=== PATIENT | female | born 2000 | race American Indian/Alaskan Native ===

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

== ENCOUNTER 2021-01-19 17:48 | Emergency (ER) | payer MEDICAID ==
[2021-01-19 19:23] VITALS: BP 132/58
[2021-01-19] MEDS ORDERED: ONDANSETRON 4 MG ODT TAB PO ONE (19:23)
--- NOTE | 2021-01-19 19:24 | Emergency Department Report ---
ED General Adult HPI - General Chief complaint: Nausea/Vomiting/Diarrhea Stated complaint: NAUSEA,VOMITING Time Seen by Provider: 01/19/21 18:58 Source: patient Mode of arrival: Ambulatory Limitations: No Limitations - History of Present Illness Initial comments: 20 year old female who denies any significant past medical hx presents to ED with complaints of "not feeling well", nausea and vomiting. Patient states that symptoms started a couple days ago. Patient reports mild rhinorrhea, decreased appetite, nausea and she states she did vomit once today. She denies any diarrhea constipation. She denies any pain. She denies any change to her taste or smell. She denies any apparent ill contacts or recent travel. She states that her last menstrual cycle was sometime in November. She has taken a home and it was negative. She states that she did have Covid 3 months ago. She has not taken a test again since she has not been feeling well. She has not gotten any of the COVID-19 vaccines. MD Complaint: "feeling bad"/n/v -: Gradual, days(s) (2) - Related Data Previous Rx's Medication Instructions Recorded Last Taken Type Ondansetron [Zofran Odt] 4 mg PO Q8HR #15 tab.rapdis 01/19/21 Unknown Rx Allergies Allergy/AdvReac Type Severity Reaction Status Date / Time No Known Allergies Allergy Verified 01/19/21 17:55 ED Review of Systems ROS: Stated complaint: NAUSEA,VOMITING Other details as noted in HPI Comment: All other systems reviewed and negative Constitutional: denies: chills, fever Eyes: denies: eye pain, eye discharge, vision change ENT: other (rhinorrhea ). denies: ear pain, throat pain, dental pain, hearing loss, epistaxis, congestion Respiratory: denies: cough, orthopnea, shortness of breath, SOB with exertion, SOB at rest, wheezing Cardiovascular: denies: chest pain, palpitations, dyspnea on exertion, edema, syncope, paroxysmal nocturnal dyspnea Gastrointestinal: nausea, vomiting. denies: abdominal pain, diarrhea, constipation, hematemesis, melena, hematochezia Genitourinary: denies: urgency, dysuria, frequency, hematuria, discharge, abnormal menses, dyspareunia Musculoskeletal: denies: back pain, joint swelling, arthralgia Skin: denies: rash, lesions, change in color, change in hair/nails, pruritus ED Past Medical Hx - Social History Smoking Status: Former Smoker Substance Use Type: None - Medications Home Medications: Home Medications Medication Instructions Recorded Confirmed Last Taken Type Ondansetron [Zofran Odt] 4 mg PO Q8HR #15 tab.andreidis 01/19/21 Unknown Rx ED Physical Exam - General Limitations: No Limitations General appearance: alert, in no apparent distress - Head Head exam: Present: atraumatic, normocephalic, normal inspection - Eye Eye exam: Present: normal appearance, PERRL, EOMI Pupils: Present: normal accommodation - ENT ENT exam: Present: normal exam, mucous membranes moist, TM's normal bilaterally - Neck Neck exam: Present: normal inspection, full ROM - Respiratory Respiratory exam: Present: normal lung sounds bilaterally. Absent: respiratory distress, wheezes, rales, rhonchi, stridor - Cardiovascular Cardiovascular Exam: Present: regular rate, normal rhythm, normal heart sounds - GI/Abdominal GI/Abdominal exam: Present: soft. Absent: distended, tenderness, guarding - Back Exam Back exam: Present: normal inspection - Neurological Exam Neurological exam: Present: alert, oriented X3, CN II-XII intact, normal gait - Psychiatric Psychiatric exam: Present: normal affect, normal mood - Skin Skin exam: Present: intact ED Course Vital Signs 01/19/21 17:56 Temperature 99.0 F Pulse Rate 78 Respiratory 18 Rate Blood Pressure 132/58 O2 Sat by Pulse 99 Oximetry ED Medical Decision Making - Medical Decision Making Urinalysis shows nothing acute. hCG is negative. Patient currently resting comfortably, on her phone and talking to her friend in the room. She is not toxic or ill-appearing. She is not in any significant distress. She has a soft nontender abdomen. Chest clear to auscultation. She is neurologically intact with a normal gait. Her vital signs are stable. Patient symptoms could be related to a viral illness at this time. There is no indication for any additional testing, admission or specialist consult at this time. Discussed results, suspected diagnosis and treatment plan with patient. Patient expressed understanding for instructions and agree with plan. Patient stable at time of discharge. Critical care attestation.: If time is entered above; I have spent that time in minutes in the direct care of this critically ill patient, excluding procedure time. ED Disposition Clinical Impression: Nausea and vomiting, Viral illness Disposition: HOME / SELF CARE / HOMELESS Is pt being admited?: No Does the pt Need Aspirin: No Condition: Stable Instructions: Nausea and Vomiting, Adult, [id number], Viral Illness, Adult Additional Instructions: You can take the Zofran as prescribed to help with nausea. Drink lots of fluids. Recommend taking a COVID-19 test as COVID-19 is in the differential possibilities to the cause of his symptoms. Recommend that you quarantine until you know the results of your Covid test. Follow-up closely with your PCP, if you do not have 1 1 will be provided to you on your discharge instructions. Return to the ER if your symptoms worsens or changes in any way. Prescriptions: Ondansetron [Zofran Odt] 4 mg PO Q8HR #15 tab.rapdis Referrals: [facility] [Provider Group] - 3-5 Days Forms: Work/School Release Form(ED) Time of Disposition: 20:35
[2021-01-19 20:08] LABS: Bilirubin,Urine NEG (Negative); Blood,Urine NEG (Negative); Color,Urine Amber (Yellow); Mucus,Urine 3+ /HPF
[2021-01-19 20:22] LABS: HCG Qualitative,Urine Negative (Negative)
== END 2021-01-19 21:28 | disposition home or self-care (01) ==
LOC: ED 17:48
DX: B34.9 Viral infection, unspecified (principal); R11.2 Nausea with vomiting, unspecified
CPT/HCPCS: 81001; 81025; 99283; Q0162

== ENCOUNTER 2021-01-26 13:03 | Emergency (ER) | payer MEDICAID ==
[2021-01-26 13:18] VITALS: BP 129/84
[2021-01-26] MEDS ORDERED: IBUPROFEN 600 MG TAB PO ONE (13:37)
--- NOTE | 2021-01-26 14:32 | Emergency Department Report ---
ED Back Pain/Injury HPI - General Chief Complaint: Back Pain/Injury Stated Complaint: FLANK PAIN Time Seen by Provider: 01/26/21 13:30 Source: patient Limitations: No Limitations - History of Present Illness Initial Comments: Patient presents with nontraumatic back pain. This is pain in the right flank area. It does not radiate or migrate. There is no history of travel or trauma. She had been seen recently for an upper respiratory infection. That was here. She had been seen at urgent care for similar symptoms. She states that she did not have this pain at that time. She has no dysuria or frequency or hematuria. No vaginal bleeding or discharge. She still states that she has a cough but the cough is better. The pain that she is having is in the right flank area. It does not radiate or migrate. It is not pleuritic in nature. It is slightly worse with movement and palpation. - Related Data Previous Rx's Medication Instructions Recorded Last Taken Type Ondansetron [Zofran Odt] 4 mg PO Q8HR #15 tab.rapdis 01/19/21 Unknown Rx Ibuprofen [Motrin] 600 mg PO Q8H PRN #20 tablet 01/26/21 Unknown Rx Allergies Allergy/AdvReac Type Severity Reaction Status Date / Time No Known Allergies Allergy Verified 01/26/21 13:18 ED Review of Systems ROS: Stated complaint: FLANK PAIN Other details as noted in HPI Comment: All other systems reviewed and negative Constitutional: denies: fever Eyes: denies: eye pain ENT: denies: throat pain Respiratory: see HPI Cardiovascular: denies: chest pain Gastrointestinal: denies: abdominal pain Genitourinary: denies: dysuria Musculoskeletal: as per HPI Skin: denies: rash Neurological: denies: headache Hematological/Lymphatic: denies: easy bruising ED Past Medical Hx - Past Medical History Previous Medical History?: No - Surgical History Past Surgical History?: No - Family History Family history: no significant - Social History Smoking Status: Former Smoker Substance Use Type: None - Medications Home Medications: Home Medications Medication Instructions Recorded Confirmed Last Taken Type Ondansetron [Zofran Odt] 4 mg PO Q8HR #15 tab.rapdis 01/19/21 Unknown Rx Ibuprofen [Motrin] 600 mg PO Q8H PRN #20 tablet 01/26/21 Unknown Rx ED Physical Exam - General Limitations: No Limitations, Other (Pulse ox noted and normal) General appearance: alert, in no apparent distress, obese (Mild) - Head Head exam: Present: atraumatic, normocephalic, normal inspection - Eye Eye exam: Present: normal appearance, EOMI. Absent: scleral icterus - ENT ENT exam: Present: normal exam, normal orophraynx, normal external ear exam - Neck Neck exam: Present: normal inspection. Absent: meningismus - Respiratory Respiratory exam: Present: normal lung sounds bilaterally. Absent: respiratory distress - Cardiovascular Cardiovascular Exam: Present: regular rate, normal rhythm - GI/Abdominal GI/Abdominal exam: Present: soft. Absent: tenderness - Extremities Exam Extremities exam: Present: normal capillary refill. Absent: calf tenderness - Back Exam Back exam: Present: CVA tenderness (R) (Mild). Absent: CVA tenderness (L) - Neurological Exam Neurological exam: Present: alert, oriented X3, CN II-XII intact, normal gait. Absent: motor sensory deficit - Psychiatric Psychiatric exam: Present: normal affect, normal mood - Skin Skin exam: Present: warm, dry ED Course Vital Signs 01/26/21 13:13 Temperature 98.3 F Pulse Rate 84 Respiratory 14 Rate Blood Pressure 129/84 [Left] O2 Sat by Pulse 100 Oximetry - Reevaluation(s) Reevaluation #1: 01/26/21 14:31 UA had been ordered Reevaluation #2: 01/26/21 15:05 UA was noted ED Medical Decision Making - Medical Decision Making Patient presents with right flank pain of ankle etiology. There is no trauma associated with this. I am not concerned for injury or rib fracture. She has no abdominal tenderness that would suggest referred pain from hepatitis or pancreatitis. She certainly does not have symptoms suggestive of biliary colic. She does not have dysuria frequency suggestive of pyelonephritis. UA is clean. There is no evidence of Timothy. She also has no hematuria to suggest ureteral colic. Critical care attestation.: If time is entered above; I have spent that time in minutes in the direct care of this critically ill patient, excluding procedure time. ED Disposition Clinical Impression: Acute right flank pain Disposition: HOME / SELF CARE / HOMELESS Is pt being admited?: No Condition: Stable Instructions: Flank Pain, Adult Additional Instructions: Drink plenty water. Return for problems. Continue taking your medication. Follow-up with your regular doctor for recheck and further management. Prescriptions: Ibuprofen [Motrin] 600 mg PO Q8H PRN #20 tablet PRN Reason: Pain Referrals: PRIMARY CARE, [Referring] - 3-5 Days JULIANNE GARCIA MD [Staff Physician] - 3-5 Days
[2021-01-26 14:58] LABS: Amorphous Crystals,Urine 1+; Bilirubin,Urine NEG (Negative); Blood,Urine NEG (Negative); Color,Urine Yellow (Yellow); Mucus,Urine FEW /HPF
== END 2021-01-26 16:56 ==
LOC: ED 13:03
DX: R10.9 Unspecified abdominal pain (principal); Z87.891 Personal history of nicotine dependence; Z79.899 Other long term (current) drug therapy
CPT/HCPCS: 81001; 99283

== ENCOUNTER 2021-02-03 19:42 | Emergency (ER) | payer MEDICAID ==
--- NOTE | 2021-02-03 20:25 | Emergency Department Report ---
ED Abdominal Pain HPI - General Chief Complaint: Abdominal Pain Stated Complaint: BODY NOSE STOPPED UP CRAMPING Time Seen by Provider: 02/03/21 20:21 Source: patient Mode of arrival: Ambulatory Limitations: No Limitations - History of Present Illness Initial Comments: Patient 20-year-old female who presents with abdominal pain cramping x2 weeks weeks. Seen 1 week ago diagnosed with UTI. Patient denies fevers or chills , abdominal pain cramping 5/10 and nuasea are primary concerns. Last menstrual cycle was 3 weeks ago. Patient is tolerating p.o. intake however. MD Complaint: abdominal pain - Related Data Previous Rx's Medication Instructions Recorded Last Taken Type Ondansetron [Zofran Odt] 4 mg PO Q8HR #15 tab.rapdis 01/19/21 Unknown Rx Ibuprofen [Motrin] 600 mg PO Q8H PRN #20 tablet 01/26/21 Unknown Rx Ibuprofen [Motrin 800 MG tab] 800 mg PO Q8HR PRN #30 tablet 02/03/21 Unknown Rx cephALEXin [Keflex] 500 mg PO Q8HR 7 Days #21 cap 02/03/21 Unknown Rx Allergies Allergy/AdvReac Type Severity Reaction Status Date / Time No Known Allergies Allergy Verified 01/26/21 13:18 ED Review of Systems ROS: Stated complaint: BODY NOSE STOPPED UP CRAMPING Other details as noted in HPI Constitutional: denies: chills, fever Eyes: denies: eye pain, eye discharge, vision change ENT: denies: ear pain, throat pain Respiratory: denies: cough, shortness of breath, wheezing Cardiovascular: denies: chest pain, palpitations Endocrine: no symptoms reported Gastrointestinal: abdominal pain, nausea. denies: vomiting, diarrhea, constipation, melena Genitourinary: frequency. denies: urgency, dysuria, hematuria, discharge, abnormal menses Musculoskeletal: back pain. denies: joint swelling, arthralgia Skin: denies: rash, lesions Neurological: denies: headache, weakness, paresthesias Psychiatric: denies: anxiety, depression Hematological/Lymphatic: denies: easy bleeding, easy bruising ED Past Medical Hx - Past Medical History Previous Medical History?: No - Surgical History Past Surgical History?: No - Social History Smoking Status: Former Smoker Substance Use Type: None - Medications Home Medications: Home Medications Medication Instructions Recorded Confirmed Last Taken Type Ondansetron [Zofran Odt] 4 mg PO Q8HR #15 tab.rapdis 01/19/21 Unknown Rx Ibuprofen [Motrin] 600 mg PO Q8H PRN #20 tablet 01/26/21 Unknown Rx Ibuprofen [Motrin 800 MG tab] 800 mg PO Q8HR PRN #30 tablet 02/03/21 Unknown Rx cephALEXin [Keflex] 500 mg PO Q8HR 7 Days #21 cap 02/03/21 Unknown Rx ED Physical Exam - General Limitations: No Limitations General appearance: alert, in no apparent distress - Head Head exam: Present: atraumatic, normocephalic - Eye Eye exam: Present: normal appearance, EOMI Pupils: Present: normal accommodation - ENT ENT exam: Present: mucous membranes moist - Neck Neck exam: Present: normal inspection, full ROM. Absent: tenderness - Respiratory Respiratory exam: Present: normal lung sounds bilaterally. Absent: respiratory distress, wheezes, stridor, chest wall tenderness - Cardiovascular Cardiovascular Exam: Present: regular rate, normal rhythm, normal heart sounds. Absent: systolic murmur, diastolic murmur, rubs, gallop - GI/Abdominal GI/Abdominal exam: Present: soft, normal bowel sounds. Absent: distended, tenderness, guarding, bruit, hernia - Rectal Rectal exam: Present: deferred - Extremities Exam Extremities exam: Present: normal inspection, full ROM. Absent: tenderness - Back Exam Back exam: Present: normal inspection, full ROM. Absent: CVA tenderness (R), CVA tenderness (L) - Neurological Exam Neurological exam: Present: alert, oriented X3, CN II-XII intact, normal gait - Psychiatric Psychiatric exam: Present: normal affect, normal mood - Skin Skin exam: Present: warm, dry, intact, normal color. Absent: rash ED Course Vital Signs 02/03/21 20:08 Temperature 98.2 F Pulse Rate 72 Respiratory 17 Rate Blood Pressure 126/70 O2 Sat by Pulse 99 Oximetry ED Medical Decision Making - Lab Data Result diagrams: 02/03/21 20:34 02/03/21 20:34 Labs 02/03/21 02/03/21 02/03/21 20:34 20:34 Unknown WBC 7.1 RBC 4.67 Hgb 12.5 Hct 38.7 MCV 83 MCH 27 L MCHC 32 RDW 16.2 H Plt Count 268 Seg Neutrophils % Clip Coater Sodium 135 L Potassium 3.9 Chloride 102.6 Carbon Dioxide 21 L Anion Gap 15 BUN 12 Creatinine 0.6 Estimated GFR > 60 BUN/Creatinine Ratio 20 Glucose 95 Calcium 9.1 Total Bilirubin 0.30 AST 17 ALT 18 Alkaline Phosphatase 91 Total Protein 8.1 Albumin 4.3 Albumin/Globulin Ratio 1.1 Urine Color Yellow Urine Turbidity Slightly-cloudy Urine pH 6.0 Ur Specific [place] 1.017 Urine Protein 30 mg/dl Urine Glucose (UA) Neg Urine Ketones Neg Urine Blood Lg Urine Nitrite Neg Urine Bilirubin Neg Urine Urobilinogen 2.0 Ur Leukocyte Esterase Neg Urine WBC (Auto) 31.0 H Urine RBC (Auto) > 182.0 U Epithel Cells (Auto) 1.0 Urine Yeast (Budding) Few Urine HCG, Qual Negative - Medical Decision Making UA noted for WBCs bacteria some yeast. Plan treat for UTI, follow-up with your doctor in 2 to 3 days. Return to emergency department should symptoms worsen. Patient currently alert oriented x3 tolerating p.o. intake without symptoms. Verbalized agreement and understanding with discharge plan. Patient DC'd home in stable condition at this time. Critical care attestation.: If time is entered above; I have spent that time in minutes in the direct care of this critically ill patient, excluding procedure time. ED Disposition Clinical Impression: UTI (urinary tract infection) Qualifiers: Urinary tract infection type: acute cystitis Hematuria presence: without hematuria Qualified Code(s): N30.00 - Acute cystitis without hematuria Disposition: HOME / SELF CARE / HOMELESS Is pt being admited?: No Does the pt Need Aspirin: No Condition: Stable Instructions: Abdominal Pain (ED), Urinary Tract Infection, Adult, [id number] Additional Instructions: Take medications as prescribed, follow-up with your doctor in 2 to 3 days. Return to emergency department should symptoms worsen. Prescriptions: cephALEXin [Keflex] 500 mg PO Q8HR 7 Days #21 cap Ibuprofen [Motrin 800 MG tab] 800 mg PO Q8HR PRN #30 tablet PRN Reason: pain Referrals: MAUREEN WAGNER MD [Staff Physician] - 3-5 Days Forms: Work/School Release Form(ED) Time of Disposition: 22:10
[2021-02-03 20:48] LABS: Hematocrit 38.7 % (30.3-42.9); Hemoglobin 12.5 gm/dl (10.1-14.3); Mean Corpuscular HGB Conc 32 % (30-34); Mean Corpuscular Volume 83 fl (79-97); Platelet Count 268 K/mm3 (140-440); Red Blood Count 4.67 M/mm3 (3.65-5.03); Red Cell Distribution Width 16.2 % (13.2-15.2)
[2021-02-03 20:56] LABS: Bilirubin,Urine NEG (Negative); Blood,Urine LG (Negative); Color,Urine Yellow (Yellow)
[2021-02-03 20:58] LABS: HCG Qualitative,Urine Negative (Negative); RBC,Urine > 182.0 /HPF (0.0-6.0)
[2021-02-03 21:10] LABS: Alanine Aminotransferase 18 units/L (7-56); Albumin 4.3 g/dL (3.9-5); Blood Urea Nitrogen 12 mg/dL (7-17); Calcium 9.1 mg/dL (8.4-10.2); Hemolysis Index 13
[2021-02-03 21:11] LABS: BUN/Creatinine Ratio 20
[2021-02-03] MEDS ORDERED: cephALEXin 500 MG CAP PO ONE (22:05)
[2021-02-03] MEDS ORDERED: FLUCONAZOLE 200 MG TAB PO ONE (22:05)
[2021-02-03 22:41] LABS: Total Cells Counted 100
[2021-02-03 22:42] LABS: Anisocytosis RARE; Giant Platelets Rare; Hypochromasia Few
[2021-02-03 22:52] VITALS: BP 111/62
== END 2021-02-03 23:51 | disposition home or self-care (01) ==
LOC: ED 19:42
DX: N39.0 Urinary tract infection, site not specified (principal); Z87.891 Personal history of nicotine dependence; Z79.899 Other long term (current) drug therapy
CPT/HCPCS: 36415; 80053; 81001; 81025; 85007; 85025; 87086; 99283

== ENCOUNTER 2021-07-05 18:51 | Emergency (ER) | payer MEDICAID ==
[2021-07-05 19:38] VITALS: BP 126/55
[2021-07-05] MEDS ORDERED: AMOXICILLIN/K CLAV 875/125MG TAB PO ONE (23:13)
[2021-07-05] MEDS ORDERED: IBUPROFEN 800 MG TAB PO ONE (23:13)
--- NOTE | 2021-07-05 23:58 | Emergency Department Report ---
ED General Adult HPI - General Chief complaint: Upper Respiratory Infection Stated complaint: COUGH/SORE THROAT/CHILLS Time Seen by Provider: 07/05/21 23:09 Source: patient Mode of arrival: Ambulatory Limitations: No Limitations - History of Present Illness Initial comments: Patient a 21-year-old female who presents for fevers chills malaise and sore t hroat x3 days. Sore throat is described as burning exacerbated by swallowing. There is no wheezing no stridor. No ear pain. No shortness of breath. There is been no nausea no vomiting. Patient is tolerating p.o. intake. Patient denies history of asthma or bronchitis. T-max is 101.1 at home. Noted same in triage tonight. Fever is relieved by [id number] Tylenol or ibuprofen. Severity scale (0 -10): 7 - Related Data Previous Rx's Medication Instructions Recorded Last Taken Type Ondansetron [Zofran Odt] 4 mg PO Q8HR #15 tab.rapdis 01/19/21 Unknown Rx Ibuprofen [Motrin] 600 mg PO Q8H PRN #20 tablet 01/26/21 Unknown Rx Ibuprofen [Motrin 800 MG tab] 800 mg PO Q8HR PRN #30 tablet 02/03/21 Unknown Rx cephALEXin [Keflex] 500 mg PO Q8HR 7 Days #21 cap 02/03/21 Unknown Rx Amoxicillin [Trimox CAP] 500 mg PO Q8H 7 Days #21 capsule 07/06/21 Unknown Rx Benzocaine/Mentho [Cepacol X 1 each MM Q4H PRN #3 packet 07/06/21 Unknown Rx Strength] Ibuprofen [Motrin 800 MG tab] 800 mg PO Q8HR PRN #30 tablet 07/06/21 Unknown Rx Allergies Allergy/AdvReac Type Severity Reaction Status Date / Time No Known Allergies Allergy Verified 01/26/21 13:18 ED Review of Systems ROS: Stated complaint: COUGH/SORE THROAT/CHILLS Other details as noted in HPI Constitutional: chills, fever, malaise Eyes: denies: eye pain, eye discharge, vision change ENT: throat pain. denies: ear pain, congestion Respiratory: denies: cough, shortness of breath, wheezing Cardiovascular: denies: chest pain, palpitations Endocrine: no symptoms reported Gastrointestinal: denies: abdominal pain, nausea, vomiting, diarrhea Genitourinary: denies: urgency, dysuria, discharge Musculoskeletal: denies: back pain, joint swelling, arthralgia Skin: denies: rash, lesions Neurological: denies: headache, weakness, numbness, paresthesias, confusion, vertigo Psychiatric: denies: anxiety, depression Hematological/Lymphatic: as per HPI ED Past Medical Hx - Social History Smoking Status: Former Smoker Substance Use Type: None - Medications Home Medications: Home Medications Medication Instructions Recorded Confirmed Last Taken Type Ondansetron [Zofran Odt] 4 mg PO Q8HR #15 tab.rapdis 01/19/21 Unknown Rx Ibuprofen [Motrin] 600 mg PO Q8H PRN #20 tablet 01/26/21 Unknown Rx Ibuprofen [Motrin 800 MG tab] 800 mg PO Q8HR PRN #30 tablet 02/03/21 Unknown Rx cephALEXin [Keflex] 500 mg PO Q8HR 7 Days #21 cap 02/03/21 Unknown Rx Amoxicillin [Trimox CAP] 500 mg PO Q8H 7 Days #21 capsule 07/06/21 Unknown Rx Benzocaine/Mentho [Cepacol X 1 each MM Q4H PRN #3 packet 07/06/21 Unknown Rx Strength] Ibuprofen [Motrin 800 MG tab] 800 mg PO Q8HR PRN #30 tablet 07/06/21 Unknown Rx ED Physical Exam - General Limitations: No Limitations General appearance: alert, in no apparent distress - Head Head exam: Present: normocephalic, normal inspection - Eye Eye exam: Present: normal appearance, PERRL, EOMI Pupils: Present: normal accommodation - ENT ENT exam: Present: mucous membranes moist, TM's normal bilaterally, normal external ear exam - Expanded ENT Exam Expanded Ear exam: Present: normal external inspection Throat exam: Positive: tonsillar erythema, tonsillomegaly, tonsillar exudate, other (Uvula midline no stridor no wheezing no lesions airway is patent). Negative: R peritonsillar mass, L peritonsillar mass - Neck Neck exam: Present: normal inspection, full ROM, lymphadenopathy. Absent: tenderness, meningismus, thyromegaly - Respiratory Respiratory exam: Present: normal lung sounds bilaterally. Absent: respiratory distress, wheezes, stridor, chest wall tenderness - Cardiovascular Cardiovascular Exam: Present: regular rate, normal rhythm, normal heart sounds. Absent: systolic murmur, diastolic murmur, rubs, gallop - GI/Abdominal GI/Abdominal exam: Present: soft, normal bowel sounds. Absent: distended, tenderness - Rectal Rectal exam: Present: deferred - Extremities Exam Extremities exam: Present: normal inspection, full ROM, normal capillary refill - Back Exam Back exam: Present: normal inspection, full ROM. Absent: CVA tenderness (R), CVA tenderness (L) - Neurological Exam Neurological exam: Present: alert, oriented X3, CN II-XII intact, normal gait - Expanded Neurological Exam Expanded Patient oriented to: Present: person, place, time Speech: Present: fluid speech Best Eye Response (Love): (4) open spontaneously Best Motor Response (Neal): (6) obeys commands Best Verbal Response (Neal): (5) oriented Love Total: 15 - Psychiatric Psychiatric exam: Present: normal affect, normal mood - Skin Skin exam: Present: warm, dry, intact, normal color. Absent: rash ED Course Vital Signs 07/05/21 19:36 Temperature 101.1 F H Pulse Rate 89 Respiratory 20 Rate Blood Pressure 126/55 O2 Sat by Pulse 100 Oximetry ED Medical Decision Making - Medical Decision Making Rapid strep is pending however there is bilateral tonsillar erythema exudate no peritonsillar abscess no lesions no stridor. Airway remains patent. Symptoms are improved with medications given in ED plan DC to home, with prescriptions follow-up primary care doctor in 2 to 3 days continue to hydrate as directed. Return to emergency department should symptoms worsen. Patient verbalized agreement and understanding of discharge plan. Patient DC'd home in stable condition at this time. Critical care attestation.: If time is entered above; I have spent that time in minutes in the direct care of this critically ill patient, excluding procedure time. ED Disposition Clinical Impression: Pharyngitis Qualifiers: Pharyngitis/tonsillitis etiology: unspecified etiology Qualified Code(s): J02.9 - Acute pharyngitis, unspecified Disposition: HOME / SELF CARE / HOMELESS Is pt being admited?: No Does the pt Need Aspirin: No Condition: Stable Instructions: Pharyngitis Additional Instructions: Take medications as prescribed, follow-up with your doctor in 2 to 3 days. Return to emergency department should symptoms worsen. Prescriptions: Benzocaine/Mentho [Cepacol X Strength] 1 each MM Q4H PRN #3 packet PRN Reason: Throat Pain Ibuprofen [Motrin 800 MG tab] 800 mg PO Q8HR PRN #30 tablet PRN Reason: pain fever Amoxicillin [Trimox CAP] 500 mg PO Q8H 7 Days #21 capsule Referrals: JU JARVIS NP-C [Primary Care Provider] - 3-5 Days BILL MONTEMAYOR MD [Staff Physician] - 3-5 Days Forms: Work/School Release Form(ED) Time of Disposition: 00:30
== END 2021-07-06 00:48 | disposition home or self-care (01) ==
LOC: ED 18:51
DX: J02.9 Acute pharyngitis, unspecified (principal); Z87.891 Personal history of nicotine dependence
CPT/HCPCS: 99282

== ENCOUNTER 2021-07-08 15:57 | Emergency (ER) | payer MEDICAID ==
[2021-07-08 17:51] VITALS: BP 124/67
--- NOTE | 2021-07-09 00:11 | Emergency Department Report ---
ED General Adult HPI - General Chief complaint: Medical Clearance Stated complaint: THROAT PAIN/MUSCLES TIGHT Time Seen by Provider: 07/08/21 23:59 Source: patient Mode of arrival: Ambulatory Limitations: No Limitations - History of Present Illness Initial comments: 21-year-old female [facility] emerge department complaining of having been diagnosed with pharyngitis here a day ago and prescribed p.o.'s to take for her infection. While she had taken the pills she reported difficulty swallowing pill as she states she has never been taught how to swallow pills and would like the medication changed to a liquid form. She reports no progression of her symptoms no change in her symptoms s or worsening symptoms she simply needs a medication adjustment -: Gradual Severity scale (0 -10): 4 Improves with: none Worsens with: none Associated Symptoms: denies other symptoms Treatments Prior to Arrival: none - Related Data Previous Rx's Medication Instructions Recorded Last Taken Type Ondansetron [Zofran Odt] 4 mg PO Q8HR #15 tab.rapdis 01/19/21 Unknown Rx Ibuprofen [Motrin] 600 mg PO Q8H PRN #20 tablet 01/26/21 Unknown Rx Ibuprofen [Motrin 800 MG tab] 800 mg PO Q8HR PRN #30 tablet 02/03/21 Unknown Rx cephALEXin [Keflex] 500 mg PO Q8HR 7 Days #21 cap 02/03/21 Unknown Rx Amoxicillin [Trimox CAP] 500 mg PO Q8H 7 Days #21 capsule 07/06/21 Unknown Rx Benzocaine/Mentho [Cepacol X 1 each MM Q4H PRN #3 packet 07/06/21 Unknown Rx Strength] Ibuprofen [Motrin 800 MG tab] 800 mg PO Q8HR PRN #30 tablet 07/06/21 Unknown Rx Amoxicillin [Amoxicillin 250 MG/5 500 mg PO TID #210 ml 07/09/21 Unknown Rx Ml] Allergies Allergy/AdvReac Type Severity Reaction Status Date / Time No Known Allergies Allergy Verified 01/26/21 13:18 ED Review of Systems ROS: Stated complaint: THROAT PAIN/MUSCLES TIGHT Other details as noted in HPI Comment: All other systems reviewed and negative ED Past Medical Hx - Social History Smoking Status: Former Smoker Substance Use Type: None - Medications Home Medications: Home Medications Medication Instructions Recorded Confirmed Last Taken Type Ondansetron [Zofran Odt] 4 mg PO Q8HR #15 tab.rapdis 01/19/21 Unknown Rx Ibuprofen [Motrin] 600 mg PO Q8H PRN #20 tablet 01/26/21 Unknown Rx Ibuprofen [Motrin 800 MG tab] 800 mg PO Q8HR PRN #30 tablet 02/03/21 Unknown Rx cephALEXin [Keflex] 500 mg PO Q8HR 7 Days #21 cap 02/03/21 Unknown Rx Amoxicillin [Trimox CAP] 500 mg PO Q8H 7 Days #21 capsule 07/06/21 Unknown Rx Benzocaine/Mentho [Cepacol X 1 each MM Q4H PRN #3 packet 07/06/21 Unknown Rx Strength] Ibuprofen [Motrin 800 MG tab] 800 mg PO Q8HR PRN #30 tablet 07/06/21 Unknown Rx Amoxicillin [Amoxicillin 250 MG/5 500 mg PO TID #210 ml 07/09/21 Unknown Rx Ml] ED Physical Exam - General Limitations: No Limitations General appearance: alert, in no apparent distress - Head Head exam: Present: atraumatic, normocephalic - Eye Eye exam: Present: normal appearance, PERRL, EOMI Pupils: Present: normal accommodation - ENT ENT exam: Present: mucous membranes moist, other (Normal voice no drooling airway patent tongue uvula midline) - Neck Neck exam: Present: normal inspection, full ROM - Respiratory Respiratory exam: Present: normal lung sounds bilaterally. Absent: respiratory distress, rales, rhonchi, stridor - Cardiovascular Cardiovascular Exam: Present: regular rate, normal rhythm. Absent: systolic murmur, diastolic murmur, rubs, gallop - GI/Abdominal GI/Abdominal exam: Present: soft, normal bowel sounds - Extremities Exam Extremities exam: Present: normal inspection - Back Exam Back exam: Present: normal inspection - Neurological Exam Neurological exam: Present: alert, oriented X3 - Psychiatric Psychiatric exam: Present: normal affect, normal mood - Skin Skin exam: Present: warm, dry, intact, normal color. Absent: rash ED Course Vital Signs 07/08/21 17:48 Temperature 98.3 F Pulse Rate 95 H Respiratory 18 Rate Blood Pressure 124/67 [Right] O2 Sat by Pulse 99 Oximetry Critical care attestation.: If time is entered above; I have spent that time in minutes in the direct care of this critically ill patient, excluding procedure time. ED Disposition Clinical Impression: Pharyngitis Disposition: HOME / SELF CARE / HOMELESS Is pt being admited?: No Does the pt Need Aspirin: No Condition: Stable Instructions: Pharyngitis, Sore Throat Additional Instructions: Medications have been adjusted from a pill to a liquid form. Please be sure to follow-up with the listed primary care provider for reevaluation and also evaluation of the occasional arm pain you have been experiencing since receiving this diagnosis Prescriptions: Amoxicillin [Amoxicillin 250 MG/5 Ml] 500 mg PO TID #210 ml Referrals: JULIANNE GARCIA MD [Primary Care Provider] - 3-5 Days
== END 2021-07-09 00:20 | disposition home or self-care (01) ==
LOC: ED 15:57
DX: J02.9 Acute pharyngitis, unspecified (principal); Z87.891 Personal history of nicotine dependence; Z79.899 Other long term (current) drug therapy
CPT/HCPCS: 99282